=== PATIENT | female | born 2000 | race African-American/Black ===

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

== ENCOUNTER 2018-02-04 20:37 | Emergency (ER) | payer OTHER ==
[2018-02-04 20:42] VITALS: BP 102/59; PULSE 89; TEMP 98.3; BMI 23.8
[2018-02-04 21:07] LABS: HCG,QUALITATIVE URINE NEGATIVE; URINE APPEARANCE CLEAR; URINE BILIRUBIN NEGATIVE (<2.0 mg/dL); URINE BLOOD NEGATIVE (NEGATIVE); URINE COLOR LTYELLOW; URINE GLUCOSE (UA) NEGATIVE (NEGATIVE); URINE KETONE TRACE (NEGATIVE); URINE LEUK ESTERASE NEGATIVE (NEGATIVE); URINE NITRITE NEGATIVE (NEGATIVE); URINE PROTEIN NEGATIVE (NEGATIVE); URINE UROBILINOGEN NEGATIVE mg/dL (0.2-1.0)
--- NOTE | 2018-02-05 00:29 | PDOC ---
History of Present Illness - General Chief Complaint: Pain Stated Complaint: PAIN Time Seen by Provider: 02/04/18 23:43 History Source: Patient - History of Present Illness Initial Comments: 02/05/18 00:30 17 year old female with left pelvic pain, vaginal discharge Past History - Past Medical History Allergies/Adverse Reactions: Allergies Allergy/AdvReac Type Severity Reaction Status Date / Time apple Allergy Verified 12/23/17 04:00 dunham flavor Allergy Verified 12/23/17 04:00 peanut Allergy Verified 12/23/17 04:00 pollen extracts Allergy Verified 12/23/17 04:00 shellfish derived AdvReac Verified 12/23/17 04:00 Home Medications: Ambulatory Orders Acetaminophen [Tylenol -] 500 mg PO Q6H PRN #30 tablet 07/19/17 Amoxicillin - [Amoxicillin 500mg Capsule -] 500 mg PO BID #20 capsule 12/23/17 Anemia: Yes COPD: No Seizures: Yes Thyroid Disease: Yes - Surgical History Abdominal Surgery: Yes (HERNIA) - Immunization History TDAP Vaccination: Yes Immunization Up to Date: Yes - Suicide/Smoking/Psychosocial Hx Smoking Status: No Smoking History: Never smoked Have you smoked in the past 12 months: No Number of Cigarettes Smoked Daily: 0 Hx Alcohol Use: No Drug/Substance Use Hx: No Substance Use Type: None *Physical Exam - Vital Signs Last Vital Signs Temp Pulse Resp BP Pulse Ox 98.3 F 89 18 102/59 98 02/04/18 20:40 02/04/18 20:40 02/04/18 20:40 02/04/18 20:40 02/04/18 20:40 - Physical Exam General Appearance: Yes: Appropriately Dressed Female Pelvic Exam: positive: normal external exam, cervical os closed, adnexal tenderness (left) ED Treatment Course - ADDITIONAL ORDERS Additional order review: Laboratory Results 02/04/18 20:46 Urine Color Ltyellow Urine Appearance Clear Urine pH 5.0 D Ur Specific [place] 1.027 Urine Protein Negative Urine Glucose (UA) Negative Urine Ketones Trace H Urine Blood Negative Urine Nitrite Negative Urine Bilirubin Negative Urine Urobilinogen Negative Ur Leukocyte Esterase Negative Urine HCG, Qual Negative *DC/Admit/Observation/Transfer Diagnosis at time of Disposition: Pelvic pain - Discharge Dispostion Disposition: HOME - Referrals Referrals: Africa Bermudez MD [Staff Physician] - - Patient Instructions Printed Discharge Instructions: DI for Pelvic Pain Additional Instructions: take ibuprofen every 6 hours as needed for pain follow up with your monitor technician. - Post Discharge Activity
[2018-02-05] MEDS ORDERED: IBUPROFEN 600 MG TABLET (FP) PO ONE ×2 (00:31→00:59)
== END 2018-02-05 02:42 | disposition home or self-care (01) ==
LOC: JER 20:37
DX: R10.2 Pelvic and perineal pain (principal)
CPT/HCPCS: 76830-TC; 81003; 84703; 99282-25

== ENCOUNTER 2019-08-03 10:58 | Emergency (ER) | payer OTHER ==
[2019-08-03 11:04] VITALS: BP 124/65; PULSE 75; TEMP 98.8; BMI 28.5
[2019-08-03] MEDS ORDERED: AZITHROMYCIN 250 MG TABLET PO ONE (11:37)
--- NOTE | 2019-08-03 11:37 | PDOC ---
History of Present Illness - General Chief Complaint: Urinary Problem Stated Complaint: URINATION PAIN Time Seen by Provider: 08/03/19 11:04 History Source: Patient Exam Limitations: No Limitations - History of Present Illness Travel History: No Initial Comments: 08/03/19 11:32 HISTORY OF PRESENT ILLNESS: This a 19-year-old woman without comorbidities presents the emergency department for evaluation of irritation with voiding starting this morning. Patient denies any burning but reports a Montes sensation and foul-smelling urine. Patient reports she is sexually active with one male partner and has intermittent barrier protection during intercourse. Patient reports she voids after intercourse and occasionally does hold her urine while she is in school. She denies any systemic symptoms. No recent travel or sick contacts. PAST MEDICAL HISTORY: Denies past medical history SURGICAL HISTORY: Denies ALLERGIES: No known drug allergies REVIEW OF SYSTEMS General/Constitutional: Denies fever or chills. Denies weakness, weight change. HEENT: Denies change in vision. Denies ear pain or discharge. Denies sore throat. Cardiovascular: Denies chest pain or shortness of breath. Respiratory: Denies cough, wheezing, or hemoptysis. Gastrointestinal: Denies nausea, vomiting, diarrhea or constipation. Denies rectal bleeding. Genitourinary: See HPI Musculoskeletal: Denies joint or muscle swelling or pain. Denies neck or back pain. Skin and breasts: Denies rash or easy bruising. Neurologic: Denies headache, vertigo, loss of consciousness, or loss of sensation. Psychiatric: Denies depression or anxiety. Endocrine: Denies increased thirst. Denies abnormal weight change. Hematologic/Lymphatic: Denies anemia, easy bleeding, or history of blood clots. Allergic/Immunologic: Denies hives or skin allergy. Denies latex allergy. PHYSICAL EXAM General Appearance: Well-appearing, appropriately dressed. No apparent distress , no intoxication. Respiratory/Chest: Lungs CTAB. No shortness of breath, chest tenderness, respiratory distress, accessory muscle use. No crackles, rales, rhonchi, stridor , wheezing, dullness Cardiovascular: RRR. S1, S2. No JVD, murmur, bradycardia, tachycardia. Vascular Pulses: Dorsalis-Pedis (R): 2+, Dorsalis-Pedis (L): 2+ Gastrointestinal/Abdominal: Normal bowel sounds. Abdomen soft, non-distended. No rebound tenderness. No organomegaly, pulsatile mass, guarding, hernia, hepatomegaly, splenomegaly. Mild suprapubic tenderness present. No CVA tenderness noted. Past History - Past Medical History Allergies/Adverse Reactions: Allergies Allergy/AdvReac Type Severity Reaction Status Date / Time apple Allergy Verified 08/03/19 11:04 dunham flavor Allergy Verified 08/03/19 11:04 peanut Allergy Verified 08/03/19 11:04 pollen extracts Allergy Verified 08/03/19 11:04 shellfish derived AdvReac Verified 08/03/19 11:04 Home Medications: Ambulatory Orders Acetaminophen [Tylenol -] 500 mg PO Q6H PRN #30 tablet 07/19/17 Amoxicillin - [Amoxicillin 500mg Capsule -] 500 mg PO BID #20 capsule 12/23/17 Cephalexin Monohydrate [Keflex -] 500 mg PO BID #20 capsule 08/03/19 Anemia: Yes COPD: No Seizures: Yes Thyroid Disease: Yes - Surgical History Abdominal Surgery: Yes (HERNIA) - Immunization History TDAP Vaccination: Yes Immunization Up to Date: Yes - Psycho Social/Smoking Cessation Hx Smoking Status: No Smoking History: Never smoked Have you smoked in the past 12 months: No Number of Cigarettes Smoked Daily: 0 Hx Alcohol Use: No Drug/Substance Use Hx: No Substance Use Type: None *Physical Exam - Vital Signs Last Vital Signs Temp Pulse Resp BP Pulse Ox 98.8 F 75 18 124/65 100 08/03/19 11:02 08/03/19 11:02 08/03/19 11:02 08/03/19 11:02 08/03/19 11:02 - Physical Exam Female Pelvic Exam: positive: normal external exam, cervical os closed, normal adnexa, discharge (Thick white discharge present. No odor noted. Low likelihood of infection.). negative: CMT Medical Decision Making - Medical Decision Making 08/03/19 11:36 A/P: 19-year-old female with dysuria times today Mild suprapubic tenderness Last menstrual period 07/22 Transvaginal discharge Most likely urinary tract infection but will collect GC given intermittent unprotected sex. Patient is requesting treatment at this time. Urinalysis, urine culture, urine , urine GC Ceftriaxone 250 mg IM now Azithromycin 1 g orally now Reassess 08/03/19 11:45 Laboratory Tests 08/03/19 08/03/19 11:28 11:28 Urine Color Yellow Urine Appearance Cloudy Urine pH 6.5 D Ur Specific Crowder 1.019 Urine Protein Negative Urine Glucose (UA) Negative Urine Ketones Negative Urine Blood Trace Urine Nitrite Positive H Urine Bilirubin Negative Urine Urobilinogen 0.2 Ur Leukocyte Esterase 3+ H Urine WBC (Auto) 412 Urine RBC (Auto) 7 Urine Casts (Auto) 3 U Epithel Cells (Auto) 5.1 Urine Bacteria (Auto) 2826.6 Urine HCG, Qual Negative 08/03/19 11:51 Review of previous microbiology reveals Keflex sensitivity. Discharge home with prescription for Keflex 500 twice daily to be taken for 10 days. I discussed the physical exam findings, ancillary test results and final diagnoses with the patient. I answered all of the patient's questions. The patient was satisfied with the care received and felt comfortable with the discharge plan and treatment plan. The patient will call their primary care physician within 24 hours to arrange follow-up and will return to the Emergency Department with any new, persistent or worsening symptoms. 08/03/19 11:52 Discharge - Discharge Information Problems reviewed: Yes Clinical Impression/Diagnosis: Urinary tract infection Qualifiers: Urinary tract infection type: acute cystitis Hematuria presence: without hematuria Qualified Code(s): N30.00 - Acute cystitis without hematuria Condition: Stable Disposition: HOME - Admission No - Additional Discharge Information Prescriptions: Cephalexin Monohydrate [Keflex -] 500 mg PO BID #20 capsule - Follow up/Referral Referrals: Dulce Hernandez MD [Primary Care Provider] - - Patient Discharge Instructions Additional Instructions: Rest, drink lots of fluids: Teas, water, soups Avoid contact with others until fevers and symptoms resolved Lots of handwashing and good hygiene Continue [id number] medications for symptomatic relief Tylenol or Motrin for fever and pain Continue all of antibiotics until completed You been treated today with azithromycin 1 g by mouth for treatment of presumed chlamydia You have been treated with Rocephin 250 mg injection for treatment of presumned gonorrhea The syphilis test, gonorrhea and chlamydia testing will not be completed for the next few days. You may call and leave message for return phone call with lab results. Be sure to be clear with your name, birthdate, and phone number Always use condoms with the partners Followup with ED[facility] MACHINE OPERATOR or PMD in one week for reevaluation and retesting. - Post Discharge Activity
[2019-08-03 11:43] LABS: EPI CELLS 5.1 /HPF (0-5/HPF); HYALINE CASTS 3 /lpf (0-8); PH,URINE 6.5 (5.0-8.0); URINE APPEARANCE CLOUDY; URINE BACTERIA 2826.6 /hpf (NEGATIVE); URINE BILIRUBIN NEGATIVE (NEGATIVE); URINE COLOR YELLOW; URINE GLUCOSE (UA) NEGATIVE (NEGATIVE); URINE KETONE NEGATIVE (NEGATIVE); URINE LEUK ESTERASE 3+ (NEGATIVE); URINE NITRITE POSITIVE (NEGATIVE); URINE PROTEIN NEGATIVE (NEGATIVE); URINE RBC 7 /hpf (0-4); URINE UROBILINOGEN 0.2 mg/dL (0.2-1.0); URINE WBC 412 /hpf (0-5)
== END 2019-08-03 12:06 | disposition home or self-care (01) ==
LOC: JERFT 10:58
DX: N30.00 Acute cystitis without hematuria (principal); Z91.010 Allergy to peanuts; Z91.013 Allergy to seafood; J30.1 Allergic rhinitis due to pollen; Z91.018 Allergy to other foods; D64.9 Anemia, unspecified; R56.9 Unspecified convulsions; E07.9 Disorder of thyroid, unspecified
CPT/HCPCS: 36415; 81003; 84703; 87070; 87086; 87186; 87205; 87491; 87591; 96372; 99282-25

== ENCOUNTER 2020-05-19 14:21 | Emergency (ER) | payer OTHER ==
[2020-05-19 14:31] VITALS: BMI 24.7
[2020-05-19] MEDS ORDERED: SODIUM CHLORIDE 0.9% 500 ML INFUS.BAG IV ONE ×2 (14:57)
[2020-05-19] MEDS ORDERED: ONDANSETRON 4 MG/2 ML VIAL IVPUSH ONE (14:57)
--- NOTE | 2020-05-19 15:01 | PDOC ---
History of Present Illness - General Chief Complaint: Vomiting/Diarrhea Stated Complaint: VOMITING Time Seen by Provider: 05/19/20 14:49 History Source: Patient Exam Limitations: No Limitations - History of Present Illness Initial Comments: 05/19/20 14:58 20-year-old female history of anemia, , 16 weeks gestation presents complaining of nausea and vomiting for approximately 14 weeks worsening over the past 7 days with inability to tolerate p.o. Reports intermittent dizziness. Denies chest pain, shortness of breath, abdominal pain, vaginal bleeding, vaginal discharge, urinary complaints. Last normal transvaginal ultrasound was 1 month ago. ROS: as above PE: GENERAL: well-appearing, NAD HEAD: NCAT EYES: Pupils equal, round and reactive to light, sclera anicteric, conjunctiva clear ENT: pharynx: no erythema, no exudate, uvula midline NECK: supple CHEST: nontender RESP: clear, no w/r/r CARDIO: rrr, no m/g/r ABD: +BS, soft, nontender, non distended BACK: no midline spinal ttp, no CVAT EXTREMITIES: Normal range of motion, no edema NEUROLOGICAL: Normal speech, normal gait SKIN: Warm, Dry Is this a multiple visit Asthma Patient?: No Past History - Medical History Allergies/Adverse Reactions: Allergies Allergy/AdvReac Type Severity Reaction Status Date / Time apple Allergy Verified 08/03/19 11:04 dunham flavor Allergy Verified 08/03/19 11:04 peanut Allergy Verified 08/03/19 11:04 pollen extracts Allergy Verified 08/03/19 11:04 shellfish derived AdvReac Verified 08/03/19 11:04 Home Medications: Ambulatory Orders Acetaminophen [Tylenol -] 500 mg PO Q6H PRN #30 tablet 07/19/17 Amoxicillin - [Amoxicillin 500mg Capsule -] 500 mg PO BID #20 capsule 12/23/17 Cephalexin Monohydrate [Keflex -] 500 mg PO BID #20 capsule 08/03/19 Anemia: Yes COPD: No Seizures: Yes Thyroid Disease: Yes - Surgical History Abdominal Surgery: Yes (HERNIA) - Reproductive History Is Patient Now?: Yes - Immunization History TDAP Vaccination: Yes Immunization Up to Date: Yes - Psycho-Social/Smoking History Smoking Status: No Smoking History: Never smoked Have you smoked in the past 12 months: No Number of Cigarettes Smoked Daily: 0 Information on smoking cessation initiated: No - Substance Abuse Hx (Audit-C & DAST Scrn) How often the patient has a drink containing alcohol: Never Score: In Men: 4 or > Positive; In Women: 3 or > Positive: 0 Screen Result (Pos requires Nsg. Audit-10AR): Negative In the last yr the pt used illegal drug/Rx for NonMed reason: No Score: Yes response is considered Positive: 0 Screen Result (Positive result requires Nsg. DAST-10): Negative *Physical Exam - Vital Signs Last Vital Signs Temp Pulse Resp BP Pulse Ox 98.7 F 84 18 90/49 L 99 05/19/20 14:28 05/19/20 14:28 05/19/20 14:28 05/19/20 14:28 05/19/20 14:28 Medical Decision Making - Medical Decision Making 05/19/20 15:01 20-year-old female history of anemia, , 16 weeks gestation presents complaining of nausea and vomiting for approximately 14 weeks worsening over the past 7 days with inability to tolerate p.o. Reports intermittent dizziness. Denies chest pain, shortness of breath, abdominal pain, vaginal bleeding, vaginal discharge, urinary complaints. Last normal transvaginal ultrasound was 1 month ago. Labs, UA IV fluids Antiemetic Reassess 05/19/20 15:56 Awaiting lab results signed out to RYAN Iqbal Discharge - Discharge Information Problems reviewed: Yes Clinical Impression/Diagnosis: Hyperemesis gravidarum Condition: Stable - Follow up/Referral - Patient Discharge Instructions - Post Discharge Activity
[2020-05-19 17:05] LABS: BASO % 0.2 % (0-2.0); EOS % 1.6 % (0-4.5); HEMATOCRIT 35.6 % (32.4-45.2); HEMOGLOBIN 11.7 GM/dL (10.7-15.3); LYMPH % 16.3 % (8-40); MCH 29.3 pg (25.7-33.7); MCHC 32.8 g/dl (32.0-36.0); MEAN CELL VOLUME 89.4 fl (80-96); MEAN PLT VOLUME 10.8 fl (7.5-11.1); MONO % 5.5 % (3.8-10.2); NEUT % 76.4 % (42.8-82.8); PLATELET COUNT 189 K/MM3 (134-434); RBC 3.98 M/mm3 (3.60-5.2); RDW 14.7 % (11.6-15.6); WHITE BLOOD COUNT 12.3 K/mm3 (4.0-10.0)
[2020-05-19 17:32] LABS: ALBUMIN 3.6 g/dl (3.4-5.0); BILIRUBIN,TOTAL 0.3 mg/dL (0.2-1); CALCIUM 9.6 mg/dL (8.5-10.1); CREATININE 0.4 mg/dL (0.55-1.3); POTASSIUM 4.2 mmol/L (3.5-5.1)
[2020-05-19] MEDS ORDERED: METOCLOPRAMIDE HCL INJECTION 10 MG/2 ML VIAL IVPB ONE (18:01)
[2020-05-19] MEDS ORDERED: SODIUM CHLORIDE 1,000 ML IV STA (18:01)
[2020-05-19 19:02] LABS: URINE APPEARANCE CLEAR; URINE BILIRUBIN NEGATIVE (NEGATIVE); URINE COLOR YELLOW; URINE GLUCOSE (UA) NEGATIVE (NEGATIVE); URINE KETONE 4+ (NEGATIVE); URINE LEUK ESTERASE NEGATIVE (NEGATIVE); URINE NITRITE NEGATIVE (NEGATIVE); URINE PROTEIN TRACE (NEGATIVE); URINE UROBILINOGEN 0.2 mg/dL (0.2-1.0)
--- NOTE | 2020-05-19 19:16 | PDOC ---
History of Present Illness - General Chief Complaint: Vomiting/Diarrhea Stated Complaint: VOMITING Time Seen by Provider: 05/19/20 14:49 History Source: Patient Exam Limitations: No Limitations Past History - Travel History Traveled outside of the country in the last 30 days: No Close contact w/someone who was outside of country & ill: No - Medical History Allergies/Adverse Reactions: Allergies Allergy/AdvReac Type Severity Reaction Status Date / Time apple Allergy Verified 08/03/19 11:04 dunham flavor Allergy Verified 08/03/19 11:04 peanut Allergy Verified 08/03/19 11:04 pollen extracts Allergy Verified 08/03/19 11:04 shellfish derived AdvReac Verified 08/03/19 11:04 Home Medications: Ambulatory Orders Cyanocobalamin [Vitamin B12 -] 100 mcg PO DAILY 05/19/20 Doxylamine Succinate [Unisom Sleep Aid] 25 mg PO DAILY 05/19/20 Ferrous Sulfate [Iron] 325 mg PO DAILY 05/19/20 Ondansetron [Zofran Odt -] 4 mg SL TID #10 tab.sl 05/19/20 Pnv No.95/Ferrous Fum/Folic AC [ Caplet] 1 each PO DAILY 05/19/20 Anemia: Yes COPD: No Seizures: Yes Thyroid Disease: Yes - Surgical History Abdominal Surgery: Yes (HERNIA) - Reproductive History Is Patient Now?: Yes (#): 2 Para: 1 Spontaneous : 0 - Immunization History TDAP Vaccination: Yes Immunization Up to Date: Yes - Psycho-Social/Smoking History Smoking Status: No Smoking History: Never smoked Have you smoked in the past 12 months: No Number of Cigarettes Smoked Daily: 0 Information on smoking cessation initiated: No - Substance Abuse Hx (Audit-C & DAST Scrn) How often the patient has a drink containing alcohol: Never Score: In Men: 4 or > Positive; In Women: 3 or > Positive: 0 Screen Result (Pos requires Nsg. Audit-10AR): Negative In the last yr the pt used illegal drug/Rx for NonMed reason: No Score: Yes response is considered Positive: 0 Screen Result (Positive result requires Nsg. DAST-10): Negative Review of Systems - Review of Systems Able to Perform ROS?: Yes Is the patient limited Frisian proficient: No Constitutional: No: Chills, Fever, Weakness ABD/GI: Yes: Diarrhea, Nausea, Vomiting : No: Dysuria, Hematuria All Other Systems: Reviewed and Negative *Physical Exam - Vital Signs Last Vital Signs Temp Pulse Resp BP Pulse Ox 98.7 F 84 18 90/49 L 99 05/19/20 14:28 05/19/20 14:28 05/19/20 14:28 05/19/20 14:28 05/19/20 14:28 - Physical Exam General Appearance: Yes: Nourished, Appropriately Dressed. No: Apparent Distress Respiratory/Chest: positive: Lungs Clear, Normal Breath Sounds Cardiovascular: positive: Regular Rhythm, Regular Rate, S1, S2 Gastrointestinal/Abdominal: positive: Normal Bowel Sounds, Flat, Soft. negative: Tender ED Treatment Course - LABORATORY CBC & Chemistry Diagram: 05/19/20 16:00 05/19/20 15:48 - ADDITIONAL ORDERS Additional order review: Laboratory Results 05/19/20 15:48 Sodium 139 Potassium 4.2 Chloride 105 Carbon Dioxide 26 Anion Gap 7 L BUN 7.0 Creatinine 0.4 L Est GFR (CKD-EPI)AfAm 171.35 Est GFR (CKD-EPI)NonAf 147.85 Random Glucose 61 L Calcium 9.6 Total Bilirubin 0.3 AST 16 ALT 11 L Alkaline Phosphatase 73 Total Protein 7.0 Albumin 3.6 05/19/20 16:00 RBC 3.98 MCV 89.4 MCHC 32.8 RDW 14.7 MPV 10.8 Neutrophils % 76.4 Lymphocytes % 16.3 Monocytes % 5.5 Eosinophils % 1.6 Basophils % 0.2 - Medications Given in the ED: ED Medications Discontinued Medications Generic Name Dose Route Start Last Admin Trade Name Loretta PRN Reason Stop Dose Admin Ondansetron HCl 4 mg 05/19/20 14:57 05/19/20 16:00 Zofran Injection IVPUSH 05/19/20 14:58 4 mg ONCE ONE Administration Sodium Chloride 1,000 ml 05/19/20 14:57 05/19/20 16:00 Normal Saline - IV 05/19/20 14:58 1,000 ml ONCE ONE Administration Sodium Chloride 1,000 ml 05/19/20 14:57 05/19/20 16:00 Normal Saline - IV 05/19/20 14:58 1,000 ml ONCE ONE Administration Medical Decision Making - Medical Decision Making 05/19/20 21:07 Signout was received from RYAN Farias at 1600. Patient was evaluated for hyperemesis gravidarum. Upon reevaluation patient reports still having nausea, Second liter and Reglan and Benadryl were given with relief of symptoms. Repeat blood pressure now 104/63. We will discharge home with OB follow-up I discussed the physical exam findings, ancillary test results and final diagnoses with the patient. I answered all of the patient's questions. The patient was satisfied with the care received and felt comfortable with the discharge plan and treatment plan. The Patient agrees to follow up with the primary care physician/specialist within 24-72 hours. Return precautions were given. Discharge - Discharge Information Problems reviewed: Yes Clinical Impression/Diagnosis: Hyperemesis gravidarum Condition: Stable Disposition: HOME - Admission No - Additional Discharge Information Prescriptions: Ondansetron [Zofran Odt -] 4 mg SL TID #10 tab.sl - Follow up/Referral Referrals: Artem Elliott MD [Staff Physician] - - Patient Discharge Instructions Patient Printed Discharge Instructions: DI for Hyperemesis Gravidarum Additional Instructions: You were seen for your nausea and vomiting today or hyperemesis gravidarum, vomiting in . Please take the Zofran every 8 hours as needed for nausea and vomiting. Drink plenty of fluids as tolerated. Try something with a little bit of sugar in it to prevent further vomiting. Eat a bland diet Please follow-up with your [facility] T[employer] COACH tomorrow for further management of your symptoms. Return to the ER for increased vomiting, unable to keep anything down, or if you have any changes in your symptoms. - Post Discharge Activity Work/Back to School Note: Back to Work
[2020-05-19] MEDS ORDERED: METOCLOPRAMIDE HCL INJECTION 10 MG/2 ML VIAL ONE (19:24)
[2020-05-19 21:19] VITALS: BP 104/63; PULSE 76; TEMP 98.6
== END 2020-05-19 21:20 | disposition home or self-care (01) ==
LOC: JER 14:21
PROC: 3E033NZ Introduction of Analgesics, Hypnotics, Sedatives into Peripheral Vein, Percutaneous Approach (ICD-10-PCS; principal; 2020-05-19)
PROC: 3E033GC Introduction of Other Therapeutic Substance into Peripheral Vein, Percutaneous Approach (ICD-10-PCS; 2020-05-19)
PROC: 3E0337Z Introduction of Electrolytic and Water Balance Substance into Peripheral Vein, Percutaneous Approach (ICD-10-PCS; 2020-05-19)
DX: O21.0 Mild hyperemesis gravidarum (principal)
CPT/HCPCS: 36415; 80053; 81003; 85025; 99285-25

== ENCOUNTER 2020-12-10 00:32 | Emergency (ER) | payer OTHER ==
[2020-12-10 00:48] VITALS: BP 125/60; PULSE 66; TEMP 97.7; BMI 28.3
[2020-12-10 03:21] LABS: EPI CELLS >36 /uL (0-25.1); HYALINE CASTS 1 /uL (0-3.1); URINE APPEARANCE CLEAR; URINE BACTERIA 227 /uL (0-1359); URINE BILIRUBIN NEGATIVE (NEGATIVE); URINE COLOR YELLOW; URINE GLUCOSE (UA) NEGATIVE (NEGATIVE); URINE KETONE NEGATIVE (NEGATIVE); URINE LEUK ESTERASE 2+ (NEGATIVE); URINE NITRITE NEGATIVE (NEGATIVE); URINE PROTEIN NEGATIVE (NEGATIVE); URINE RBC 5 /uL (0-23.9); URINE UROBILINOGEN 0.2 mg/dL (0.2-1.0); URINE WBC 51 /uL (0-25.8)
== END 2020-12-10 03:50 | disposition home or self-care (01) ==
LOC: JER 00:32
DX: R10.9 Unspecified abdominal pain (principal)
CPT/HCPCS: 81003; 87077; 87086; 99283-25

== ENCOUNTER 2021-07-31 21:17 | Emergency (ER) | payer OTHER ==
[2021-07-31 21:26] VITALS: TEMP 98.1; BMI 23.9
[2021-07-31] MEDS ORDERED: SODIUM CHLORIDE 1,000 ML IV STA (21:42)
[2021-07-31 21:54] LABS: BASO % 0.3 % (0-2.0); EOS % 1.2 % (0-4.5); HEMATOCRIT 24.6 % (32.4-45.2); HEMOGLOBIN 8.2 GM/dL (10.7-15.3); LYMPH % 28.4 % (8-40); MCH 28.7 pg (25.7-33.7); MCHC 33.1 g/dl (32.0-36.0); MEAN CELL VOLUME 86.8 fl (80-96); MEAN PLT VOLUME 9.9 fl (7.5-11.1); MONO % 6.3 % (3.8-10.2); NEUT % 63.8 % (42.8-82.8); PLATELET COUNT 280 10^3/uL (134-434); RBC 2.84 M/mm3 (3.60-5.2); RDW 15.4 % (11.6-15.6); WHITE BLOOD COUNT 15.1 K/mm3 (4.0-10.0)
[2021-07-31 22:06] LABS: INR 1.19 (0.83-1.09)
[2021-07-31 22:09] LABS: ACTIVATED PTT 23.7 SECONDS (25.2-36.5)
[2021-07-31 22:10] LABS: ALBUMIN 4.1 g/dl (3.4-5.0); BLOOD UREA NITROGEN 10.6 mg/dL (7-18); CALCIUM 9.2 mg/dL (8.5-10.1)
[2021-07-31 22:13] LABS: CREATININE 0.7 mg/dL (0.55-1.3)
[2021-07-31 22:15] LABS: BILIRUBIN,TOTAL 0.3 mg/dL (0.2-1); TOT PROT 6.6 g/dl (6.4-8.2)
[2021-08-01 00:23] LABS: EPI CELLS 34 /uL (0-25.1); HYALINE CASTS 9 /uL (0-3.1); PH,URINE 5.5 (5.0-8.0); URINE APPEARANCE CLOUDY; URINE BILIRUBIN NEGATIVE (NEGATIVE); URINE COLOR YELLOW; URINE GLUCOSE (UA) NEGATIVE (NEGATIVE); URINE KETONE 4+ (NEGATIVE); URINE LEUK ESTERASE NEGATIVE (NEGATIVE); URINE NITRITE NEGATIVE (NEGATIVE); URINE PROTEIN 1+ (NEGATIVE); URINE UROBILINOGEN 0.2 mg/dL (0.2-1.0); URINE WBC 27 /uL (0-25.8)
[2021-08-01 00:26] VITALS: BP 100/58; PULSE 90
== END 2021-08-01 01:10 | disposition home or self-care (01) ==
LOC: JER 21:17
PROC: 3E0337Z Introduction of Electrolytic and Water Balance Substance into Peripheral Vein, Percutaneous Approach (ICD-10-PCS; principal; 2021-07-31)
DX: N93.9 Abnormal uterine and vaginal bleeding, unspecified (principal)
CPT/HCPCS: 36415; 76817-TC; 80053; 81003; 84443; 84702; 84703; 85025; 85610; 85730; 86850; 86900; 86901; 93005; 93010; 96360; 99284-25; C9803; U0003; U0005

== ENCOUNTER 2021-08-03 15:02 | Day surgery (SDC) | payer OTHER ==
[2021-08-03 15:18] VITALS: BMI 24.7
[2021-08-03 16:20] LABS: BASO % 0.3 % (0-2.0); EOS % 3.4 % (0-4.5); HEMATOCRIT 19.5 % (32.4-45.2); LYMPH % 31.4 % (8-40); MCH 29.7 pg (25.7-33.7); MCHC 33.7 g/dl (32.0-36.0); MEAN PLT VOLUME 9.4 fl (7.5-11.1); MONO % 6.8 % (3.8-10.2); NEUT % 58.1 % (42.8-82.8); PLATELET COUNT 213 10^3/uL (134-434); RBC 2.21 M/mm3 (3.60-5.2); RDW 15.3 % (11.6-15.6); WHITE BLOOD COUNT 7.9 K/mm3 (4.0-10.0)
[2021-08-03 16:32] LABS: INR 1.06 (0.83-1.09); PROTHROMBIN TIME (PATIENT) 11.9 SEC (9.7-13.0)
[2021-08-03 16:33] LABS: HEMOGLOBIN 6.6 GM/dL (10.7-15.3)
[2021-08-03 16:38] LABS: CHLORIDE 111 mmol/L (98-107); SODIUM 144 mmol/L (136-145)
[2021-08-03 16:40] LABS: CALCIUM 8.7 mg/dL (8.5-10.1)
[2021-08-03 16:41] LABS: ALBUMIN 3.3 g/dl (3.4-5.0); ANION GAP 4 MMOL/L (8-16); BLOOD UREA NITROGEN 6.4 mg/dL (7-18); CO2 28 mmol/L (21-32); GLUCOSE,RANDOM 79 mg/dL (74-106)
[2021-08-03 16:43] LABS: CREATININE 0.5 mg/dL (0.55-1.3)
[2021-08-03 16:44] LABS: IRON SERUM 33 ug/dL (50-175); SGOT/AST 4 U/L (15-37); SGPT/ALT 8 U/L (13-61); TOTAL IRON BINDING CAPACITY 239 ug/dL (250-450)
[2021-08-03 16:45] LABS: BILIRUBIN,TOTAL < 0.1 mg/dL (0.2-1); TOT PROT 5.8 g/dl (6.4-8.2)
[2021-08-03 16:46] LABS: ALK PHOS 50 U/L (45-117)
[2021-08-03] MEDS ORDERED: ACETAMINOPHEN 1000 MG/100 ML VIAL IVPB ONE (18:04)
[2021-08-03] MEDS ORDERED: ACETAMINOPHEN INJECTION 100 ML IVPB ONE (18:21)
[2021-08-03] MEDS ORDERED: IBUPROFEN 600 MG TABLET (FP) PO PRN (19:47)
[2021-08-03] MEDS ORDERED: ACETAMINOPHEN 325 MG TABLET (FP) PO PRN (19:47)
[2021-08-03] MEDS ORDERED: ELECTROLYTE-148 SOLN 1,000 ML IV SCH (20:00)
[2021-08-03] MEDS ORDERED: LACTATED RINGERS SOLUTION 1,000 ML/1,000 ML INFUS.BAG IV SCH (20:00)
[2021-08-03] MEDS ORDERED: DOXYCYCLINE INJECTION 100 MG in DEXTROSE 5%-WATER 100 ML IVPB ONE (23:55)
[2021-08-04 01:56] LABS: BASO % 0.3 % (0-2.0); EOS % 3.2 % (0-4.5); HEMATOCRIT 23.8 % (32.4-45.2); LYMPH % 38.6 % (8-40); MCHC 33.7 g/dl (32.0-36.0); MEAN PLT VOLUME 9.7 fl (7.5-11.1); MONO % 5.5 % (3.8-10.2); NEUT % 52.4 % (42.8-82.8); PLATELET COUNT 164 10^3/uL (134-434); RBC 2.76 M/mm3 (3.60-5.2); RDW 14.8 % (11.6-15.6); WHITE BLOOD COUNT 8.6 K/mm3 (4.0-10.0)
[2021-08-04 02:04] LABS: INR 1.16 (0.83-1.09)
[2021-08-04 02:06] LABS: ACTIVATED PTT 29.6 SECONDS (25.2-36.5)
[2021-08-04 08:03] LABS: BASO % 0.3 % (0-2.0); EOS % 3.5 % (0-4.5); HEMATOCRIT 23.9 % (32.4-45.2); HEMOGLOBIN 8.4 GM/dL (10.7-15.3); LYMPH % 34.5 % (8-40); MCH 29.9 pg (25.7-33.7); MEAN CELL VOLUME 85.4 fl (80-96); MEAN PLT VOLUME 9.6 fl (7.5-11.1); MONO % 5.4 % (3.8-10.2); NEUT % 56.3 % (42.8-82.8); PLATELET COUNT 182 10^3/uL (134-434); RDW 15.2 % (11.6-15.6); WHITE BLOOD COUNT 6.9 K/mm3 (4.0-10.0)
[2021-08-04 10:20] VITALS: BP 105/62; PULSE 62; TEMP 98.1
== END 2021-08-04 09:30 | disposition home or self-care (01) ==
LOC: JASUSAT 15:02 → JER 15:02 → JASU-SURG 19:49 → J3W 19:50 → UNDOADMOB 19:50 → J3W 22:01 → JASU-SURG 08-04 09:30
PROVIDERS: ATTEND Student in an Organized Health Care Education/Training Program
PROC: 30233H1 Transfusion of Nonautologous Whole Blood into Peripheral Vein, Percutaneous Approach (ICD-10-PCS; principal; 2021-08-03)
DX: O04.6 Delayed or excessive hemorrhage following (induced) termination of pregnancy (principal)
CPT/HCPCS: 36415; 36430; 36511; 76817-TC; 80053; 82728; 83540; 83550; 84702; 85025; 85610; 85730; 86850; 86900; 86901; 86922; 88305-TC; 99284-25; C9803; J0131; P9038; P9058; U0003; U0005

== ENCOUNTER 2023-05-08 16:47 | Emergency (ER) | payer OTHER ==
[2023-05-08 16:55] VITALS: BP 97/61; PULSE 82; RESP 20; TEMP 97.9; BMI 22.8
== END 2023-05-08 19:16 | disposition left against medical advice (07) ==
LOC: JER 16:47
DX: O21.9 Vomiting of pregnancy, unspecified (principal); O26.891 Other specified pregnancy related conditions, first trimester; R51.9 Headache, unspecified; Z3A.13 13 weeks gestation of pregnancy
CPT/HCPCS: 99281-25